=== PATIENT | male | born 1965 | race Caucasian/White ===

== ENCOUNTER 2018-03-25 09:04 | Day surgery (SDC) | payer OTHER ==
[2018-03-22 15:21] LABS: ALANINE AMINOTRANSFERASE 74 U/L (12-78); ALBUMIN 4.2 g/dL (3.4-5.0); ANION GAP 7 mmol/L (5-15); CALCIUM 9.1 mg/dL (8.5-10.1); CHLORIDE 111 mmol/L (98-107); CREATININE 1.05 mg/dL (0.7-1.3)
[2018-03-22 15:23] LABS: ALKALINE PHOSPHATASE 77 U/L (45-117); BILIRUBIN,TOTAL 0.5 mg/dL (0.2-1.0); TOTAL PROTEIN 7.3 g/dL (6.4-8.2)
[~2018-03-25] VITALS: Ht 170.2 cm; Wt 107.0 kg
[~2018-03-25 09:04] MED LIST: BUPIVACAINE/PF-EPI 0.5% 1:200K ONE; DIPHENHYDRAMINE 50 MG/ML, 1ML IVPush PRN; FENTANYL PF 250 MCG/5ML ONE; HALOPERIDOL 5 MG/ML IV PRN; HYDROmorphone 2 MG/ML, 1ML IVPush PRN; LABETALOL 5MG/ML, 20ML IV PRN; LISI-170 PO; MEPERIDINE/PF 25MG/0.5ML IVPush PRN; METOPROLOL 1 MG/ML, 5ML IV PRN; OXYcodone 5 MG/5 ML ORAL.SOL UDC PO PRN; PROCHLORPERAZINE 5 MG/ML, 2ML IV PRN; PROMETHAZINE 25 MG/ML, 1ML IV PRN; hydrALAzine 20 MG/ML, 1ML IV PRN
[2018-03-25] MEDS ORDERED: LACTATED RINGERS 1,000 ML IV SCH (09:18)
[2018-03-25 09:21] VITALS: BP 145/80
[2018-03-25] MEDS ORDERED: GABAPENTIN 300 MG CAPSULE PO ONE (09:30)
[2018-03-25] MEDS ORDERED: ACETAMINOPHEN 500 MG TABLET PO ONE (09:30)
[2018-03-25] MEDS ORDERED: PROPOFOL 10 MG/ML, 20ML ONE (09:41)
[2018-03-25] MEDS ORDERED: NEOSTIGMINE 1 MG/ML, 10ML ONE (09:41)
[2018-03-25] MEDS ORDERED: GLYCOPYRROLATE 0.2MG/1ML, 5ML ONE (09:41)
[2018-03-25] MEDS ORDERED: ONDANSETRON 2MG/ML, 2ML ONE (09:41)
[2018-03-25] MEDS ORDERED: KETOROLAC 30 MG/1 ML ONE (09:41)
[2018-03-25] MEDS ORDERED: SUCCINYLCHOLINE 20 MG/ML, 10ML ONE (09:41)
[2018-03-25] MEDS ORDERED: EPHEDRINE 50 MG/ML, 1ML ONE (09:41)
[2018-03-25] MEDS ORDERED: CEFAZOLIN 1,000 MG ONE (09:41)
[2018-03-25] MEDS ORDERED: ROCURONIUM 10 MG/ML,10ML ONE (09:41)
[2018-03-25] MEDS ORDERED: FENTANYL PF 100 MCG/2ML ONE (10:40)
[2018-03-25] MEDS ORDERED: OXYcodone 5 MG/5 ML ORAL.SOL UDC ONE (10:41)
[2018-03-25] MEDS: FENTANYL PF 100 MCG/2ML IV PRN ×2 (10:44→10:50)
== END 2018-03-25 12:10 | disposition home or self-care (01) ==
LOC: OUT 09:04
PROVIDERS: ATTEND Surgery
DX: K42.0 Umbilical hernia with obstruction, without gangrene (principal); F32.9 Major depressive disorder, single episode, unspecified; M10.9 Gout, unspecified; E78.00 Pure hypercholesterolemia, unspecified; F17.210 Nicotine dependence, cigarettes, uncomplicated; G47.33 Obstructive sleep apnea (adult) (pediatric); I10 Essential (primary) hypertension; Z98.890 Other specified postprocedural states; Z88.1 Allergy status to other antibiotic agents; Z72.89 Other problems related to lifestyle
CPT/HCPCS: 36415; 49587; 80053; C1781; J0330; J0690; J1885; J2405; J2704; J2710; J3010; J3490; J7120